=== PATIENT | female | born 1995 | race Caucasian/White ===

== ENCOUNTER 2021-04-11 17:13 | Emergency (ER) | payer OTHER, SELFPAY ==
[2021-04-11 17:14] VITALS: BP 131/89; PULSE 92; RESP 18; TEMP 36.7; O2SAT 99; BMI 30.6
--- NOTE | 2021-04-11 18:12 | HMH.EDUTC ---
[facility] [place] Clinical Impression: Exposure to COVID-19 virus URI (upper respiratory infection) Qualifiers: URI type: unspecified URI Qualified Code(s): J06.9 - Acute upper respiratory infection, unspecified Disposition: Home, Self-Care Condition on Discharge: Good Instructions: DI for COVID-19 (Suspected or Confirmed ) Additional Instructions: covid swab was sent to lab, call tomorrow for results. self isolate until test results are known to be negative No sign of a bacterial infection. Likely viral. Viruses can take 7-14 days to run their course. Nasal saline and bulb syringe or nose Vanessa to remove nasal drainage to help with nasal congestion. Hard to eat, drink, sleep with nasal congestion so important to keep this cleaned out. Monitor temp. Tylenol or Motrin as needed for pain or fever Encourage fluids, water, Gatorade, Powerade, Pedialyte if /toddler/child Warm salt water gargles Warm fluids Sore throat lozenges Sleep elevated Humidifier/vaporizer Follow-up immediately for new or worsening symptoms or no noticeable improvement over the next 48-72 hours. Referrals: Aminta Carranza MD [Primary Care Provider] - Time of Disposition: 18:14 Medical Decision Making - Dennis Inquiry Pt receiving controlled substance: No Orders (Tests/Meds): ORDERS Category Date Time Status Covid-19 Nasal PCR ([facility]) Routine Lab 04/11/21 17:40 Received [facility] [place] - General Chief complaint: Urgent [facility] Stated complaint: covid test Time Seen by Provider: 04/11/21 18:12 Mode of Arrival: Ambulatory Source of Information: Patient Limitations: No Limitations - History of Present Illness Provider Complaint: 25 yr old female presnets for nicole, cough and nasal congestion. pt states family has covid - Related Data Home Medications Medication Instructions Recorded Confirmed Budesonide/Formoterol Fumarate 6 gm IH NEEDED PRN 11/12/18 11/12/18 [Symbicort 160-4.5 Mcg Inhaler] Docusate Sodium [Doc-Q-Lace] 100 mg PO NEEDED PRN 11/12/18 11/12/18 Fluticasone Propionate [Flonase 2 spr NS DAILY 11/12/18 11/12/18 50mcg nasal spray 16gm] Loratadine [Claritin 10mg Tablet] 10 mg PO DAILY 11/12/18 11/12/18 Montelukast Sodium [Montelukast 10 mg PO DAILYDM 11/12/18 11/12/18 10mg Tab] Sertraline HCl [Zoloft] 100 mg PO DAILY 11/12/18 11/12/18 Trazodone HCl 50 mg PO DAILY 11/12/18 11/12/18 ondansetron HCL [Ondansetron 4mg 4 mg PO Q8HP PRN 11/12/18 11/12/18 Tablet] Previous Rx's Medication Instructions Recorded Ondansetron [Zofran 4mg ODT] 4 mg PO TID PRN 2 Days #6 11/12/18 tab.rapdis cephALEXin [Keflex 500mg Cap] 1,000 mg PO BID 10 Days #28 cap 11/12/18 Azithromycin [Z-José 250mg Tab*] 250 mg PO UD DOSE PK #6 tab 01/31/19 methylPREDNISolone [Medrol 4mg 4 mg PO DIRECTED #21 tab 01/31/19 tab] Allergies Allergy/AdvReac Type Severity Reaction Status Date / Time peanut Allergy Verified 11/11/18 23:45 [facility] History - Hepatitis A Screen Attestation statement:: This patient has been screened for Hepatitis A risk factors. I have reviewed the patient's past medical history: Yes - Social History Alcohol Intake: never Occupational Status: student ROS Obtained: Yes Systems reviewed as appropriate & no additional complaints - Constitutional Constitutional: Reports system reviewed and no additional complaints, except as docu, Denies fever(s) - Eyes Eyes: Reports system reviewed and no additional complaints, except as docu, Denies blind spots - ENT Ears, Nose, Mouth, and Throat: Reports system reviewed and no additional complaints, except as docu, Denies dizziness, Reports headache(s), Reports nasal congestion, Denies sore throat - Cardiovascular Cardiovascular: Reports system reviewed and no additional complaints, except as docu, Denies chest pain - Respiratory Respiratory: Reports system reviewed and no additional complaints, except as docu, Denies chest congestion
[2021-04-11 18:28] VITALS: BP 131/89; PULSE 92; RESP 18; TEMP 36.7; O2SAT 99
== END 2021-04-11 18:32 | disposition home or self-care (01) ==
PROVIDERS: Emergency Provider Nurse Practitioner Family; PCP Family Medicine
DX: U07.1 COVID-19 (principal); J06.9 Acute upper respiratory infection, unspecified
CPT/HCPCS: 99202; C9803; G0463; U0003; U0005

== ENCOUNTER 2023-12-05 17:02 | Emergency (ER) | payer OTHER, SELFPAY ==
[2023-12-05 17:20] VITALS: BP 140/86; PULSE 114; RESP 20; TEMP 37.6; O2SAT 99; BMI 24.5
--- NOTE | 2023-12-05 17:23 | ED_ITS ---
Discharge Plan Disposition Patient Disposition: Home, Self-Care Condition: Good Prescriptions Prescriptions: New iuyqcvefjumxzve-yhvzfqutb-GZ [Bromfed DM] 2-30-10 mg/5 mL Syrup 5 ml PO Q6H PRN (Reason: Cough) Qty: 240 0RF amoxicillin 500 mg tablet 500 mg PO TID 10 Days Qty: 30 0RF ondansetron 4 mg Tablet,Disintegrating 4 mg PO Q8H PRN (Reason: Nausea) Qty: 12 0RF Referrals Follow up/Referrals: Aminta Carranza MD [Primary Care Provider] - See instructions Activity Restrictions/Add. Instructions Additional Instructions/Restrictions: Drink plenty of fluids. Take tylenol or ibuprofen for pain or fever. Take the medications as directed. Follow up with your regular doctor. GO TO THE ER FOR ANY WORSENING SYMPTOMS Clinical Impressions Clinical Impression: Acute viral syndrome, Sinusitis Stand Alone Forms Stand Alone Forms: Work/School Release Instructions Patient Instructions: DI for Sinusitis, DI for Viral Syndrome Print Language Print Language: Mauritian Discharge ED Provider: Albert Powers [facility] [place] HPI General Stated complaint: Nausea,cough Time Seen by Provider: 12/05/23 17:23 Related Data Previous Rx's ?Medication ?Instructions ?Recorded amoxicillin 500 mg tablet 500 mg PO TID 10 days #30 tabs 12/05/23 hfzzcbnpvlqlknz-rulivholoolawsh-FO 5 ml PO Q6H PRN Cough #240 mL 12/05/23 2 mg-30 mg-10 mg/5 mL oral syrup (Bromfed DM) ondansetron 4 mg disintegrating 4 mg PO Q8H PRN Nausea #12 tabs 12/05/23 tablet Allergies Allergy/AdvReac Type Severity Reaction Status Date / Time peanut Allergy Verified 11/11/18 23:45 [facility] Disclaimer: The information contained in this section may have been updated after the patient was seen, as this information can be updated by other users. Social History Smoking Status: Never smoker second hand exposure: No alcohol intake: never current occupational status: student Travel in the last 8 weeks: None ROS Obtained: Yes All systems reviewed & no additional complaints except as documented Constitutional Constitutional: Reports poor appetite Eyes Eyes: Reports system reviewed and no additional complaints, except as documented ENT Ears, Nose, Mouth, and Throat: Reports as per HPI Cardiovascular Cardiovascular: Reports system reviewed and no additional complaints, except as documented and Denies chest pain Respiratory Respiratory: Denies shortness of breath, Denies chest congestion, Reports cough, Denies stridor and Denies wheezing Gastrointestinal Gastrointestingal: Reports system reviewed and no additional complaints, except as documented; Denies abdominal pain, diarrhea or vomiting Musculoskeletal Musculoskeletal: Reports system reviewed and no additional complaints, except as documented and Denies arthralgias Integumentary/Breasts Skin/Breast: Reports system reviewed and no additional complaints, except as documented and Denies rash Neurologic Neurologic: Denies paresthesias Allergic/Immunologic Allergic/Immunologic: Denies wheezing Physical Exam General General appearance: alert and in no apparent distress Eye Eye exam: Present normal appearance, PERRL and EOMI ENT ENT exam: Present mucous membranes moist and normal external ear exam Expanded ENT Exam External ear exam: Present normal external inspection TM/Canal exam: Bilateral TM: erythema and bulging Nose exam: Absent sinus tenderness Nasal speculum exam: Bilateral: normal Mouth exam: Present normal external inspection; Absent drooling Teeth exam: Present normal inspection Throat exam: Present tonsillar erythema and tonsillomegaly Neck Neck exam: Present normal inspection, full ROM and trachea midline; Absent tenderness, lymphadenopathy or thyromegaly Chest Chest inspection: Present normal inspection and symmetric chest wall rise; Absent tenderness or rash Respiratory Respiratory exam: Present normal lung sounds bilaterally; Absent respiratory distress, wheezes, stridor or accessory muscle use Cardiovascular Cardiovascular exam: Present regular rate, normal rhythm and normal heart sounds Abdominal Exam Abdominal exam: Present soft; Absent distention, tenderness, guarding, rebound or rigidity Extremities Exam Extremities exam: Present normal inspection, full ROM and normal capillary refill; Absent tenderness or calf tenderness Back Exam Back exam: Present normal inspection and full ROM; Absent tenderness Neurological Exam Neurological exam: Present alert and oriented X3 Psychiatric Psychiatric exam: Present normal affect and normal mood Skin Skin exam: Present warm, dry, intact and normal color Lymphatic Lymphatic Findings: no adenopathy Medical Decision Making Medical Records Medical records reviewed: No I reviewed the patient's medical records. Screening: Per USPSTF and CDC recommendations, given the prevalence of disease in our region, it is our hospital?s policy to screen for HIV and viral Hepatitis for all patients aged 18 and over and those with ongoing risk factors. Dennis Inquiry Pt receiving controlled substance: No Lab Data Lab results reviewed: Yes I reviewed the patient's lab results.
[2023-12-05 17:43] LABS: UTC Influenza A Antigen Negative (Negative); UTC Strep Screen (Rapid) Negative (Negative)
[2023-12-05 17:44] LABS: UTC Influenza B Antigen Negative (Negative)
[2023-12-05 17:49] VITALS: BP 140/86; PULSE 114; RESP 20; TEMP 37.6; O2SAT 99
== END 2023-12-05 17:50 | disposition home or self-care (01) ==
PROVIDERS: Emergency Provider Nurse Practitioner Family; PCP Family Medicine
DX: J01.90 Acute sinusitis, unspecified (principal); R05.9 Cough, unspecified; R11.0 Nausea
CPT/HCPCS: 87804; 87880; 99212; 99214; G0463

== ENCOUNTER 2024-01-20 18:00 | Emergency (ER) | payer OTHER, SELFPAY ==
[2024-01-20 18:30] VITALS: BP 111/84; PULSE 103; RESP 18; TEMP 36.6; O2SAT 97; BMI 22.6
--- NOTE | 2024-01-20 18:46 | ED_ITS ---
Discharge Plan Disposition Patient Disposition: Home, Self-Care Condition: Good Prescriptions Prescriptions: New amoxicillin 500 mg tablet 500 mg PO TID 10 Days Qty: 30 0RF fxvigjhifwelesx-vihbabkru-MH [Bromfed DM] 2-30-10 mg/5 mL Syrup 5 ml PO Q6H PRN (Reason: Cough) Qty: 240 0RF methylprednisolone 4 mg Tablets,Dose Pack 4 mg PO DIRECTED 6 Days Qty: 21 0RF Rx Instructions: Take 1 pack as directed for 6 days Referrals Follow up/Referrals: Provider,Referral, MD [Primary Care Provider] - See instructions Activity Restrictions/Add. Instructions Additional Instructions/Restrictions: Drink plenty of fluids. Take tylenol or ibuprofen for pain or fever. Take the medications as directed. Follow up with your regular doctor. GO TO THE ER FOR ANY WORSENING SYMPTOMS Clinical Impressions Clinical Impression: Acute bronchitis, Otitis media Stand Alone Forms Stand Alone Forms: Work/School Release Instructions Patient Instructions: Middle Ear Infection, DI for Acute Bronchitis Print Language Print Language: Greenlandic Discharge ED Provider: Albert Powers [facility] [place] HPI General Stated complaint: cough, ear ache Mode of Arrival: Ambulatory Source of Information: Patient Limitations: No Limitations Time Seen by Provider: 01/20/24 18:46 Description of Symptoms (Recalled from Triage Doc. by RN): PATIENT C/O COUGH AND RIGHT EAR PAIN X 3 WEEKS HEENT Symptoms (Recalled from RN notes): Yes Resp Symptoms (Recalled from RN notes): Yes Skin Symptoms (Recalled from RN notes): No MS Symptoms (Recalled from RN notes): No Functional Status (Recalled from RN notes): WNL Related Data Previous Rx's ?Medication ?Instructions ?Recorded amoxicillin 500 mg tablet 500 mg PO TID 10 days #30 tabs 01/20/24 kjfpvkwoyemxeop-xenygxlpyexhlsl-IO 5 ml PO Q6H PRN Cough #240 mL 01/20/24 2 mg-30 mg-10 mg/5 mL oral syrup (Bromfed DM) methylprednisolone 4 mg tablets in 4 mg PO DIRECTED 6 days #21 tabs 01/20/24 a dose pack Allergies Allergy/AdvReac Type Severity Reaction Status Date / Time peanut Allergy Verified 11/11/18 23:45 Worker's Comp Is this a Worker's Comp case?: No [facility] Disclaimer: The information contained in this section may have been updated after the patient was seen, as this information can be updated by other users. Medical History (Updated 01/20/24 @ 19:08 by Albert Powers APRN) Depression Anxiety Surgical History (Updated 01/20/24 @ 18:41 by Shruti Cantu RN) History of hernia repair Social History (Updated 12/05/23 @ 19:51 by Albert Powers APRN) Smoking Status: Never smoker second hand exposure: No alcohol intake: never current occupational status: student Travel in the last 8 weeks: None ROS Obtained: Yes All systems reviewed & no additional complaints except as documented Constitutional Constitutional: Denies chills, Reports fever(s) and Reports poor appetite Eyes Eyes: Denies eye discharge ENT Ears, Nose, Mouth, and Throat: Denies ear discharge, Reports otalgia, Denies hearing loss, Denies sinus pain and Reports sore throat Cardiovascular Cardiovascular: Denies chest pain and Denies dyspnea Respiratory Respiratory: Denies chest congestion, Reports cough and Denies dyspnea Gastrointestinal Gastrointestingal: Denies abdominal pain, diarrhea, nausea or vomiting Musculoskeletal Musculoskeletal: Denies arthralgias Integumentary/Breasts Skin/Breast: Denies rash Physical Exam General General appearance: alert and in no apparent distress Head Head exam: atraumatic, normocephalic and normal inspection Eye Eye exam: Present normal appearance; Absent PERRL or EOMI ENT ENT exam: Present mucous membranes moist and normal external ear exam Expanded ENT Exam TM/Canal exam: Bilateral TM: erythema, bulging and effusion Nose exam: Absent sinus tenderness Nasal speculum exam: Bilateral: normal Mouth exam: Present normal external inspection and other; Absent drooling Teeth exam: Present normal inspection Throat exam: Present tonsillar erythema and tonsillomegaly Neck Neck exam: Present normal inspection, full ROM and trachea midline; Absent tenderness, meningismus or lymphadenopathy Chest Chest inspection: Present normal inspection and symmetric chest wall rise; Absent tenderness Respiratory Respiratory exam: Present normal lung sounds bilaterally; Absent respiratory distress, wheezes or stridor Cardiovascular Cardiovascular exam: Present regular rate, normal rhythm and normal heart sounds; Absent tachycardia or irregular rhythm Abdominal Exam Abdominal exam: Present soft and normal bowel sounds; Absent distention, tenderness, guarding, rebound or rigidity Extremities Exam Extremities exam: Present normal inspection and normal capillary refill; Absent tenderness, joint swelling or calf tenderness Back Exam Back exam: Present normal inspection and full ROM; Absent tenderness, CVA ten derness (R) or CVA tenderness (L) Neurological Exam Neurological exam: Present alert, oriented X3, CN II-XII intact, normal gait and reflexes normal; Absent motor sensory deficit Psychiatric Psychiatric exam: Present normal affect and normal mood Skin Skin exam: Present warm, dry, intact and normal color Lymphatic Lymphatic Findings: no adenopathy Medical Decision Making Medical Records Medical records reviewed: No I reviewed the patient's medical records. Screening: Per USPSTF and CDC recommendations, given the prevalence of disease in our region, it is our hospital?s policy to screen for HIV and viral Hepatitis for all patients aged 18 and over and those with ongoing risk factors. Dennis Inquiry Pt receiving controlled substance: No Vital Signs: 01/20/24 18:30 Temperature 97.9 F Temperature Source Oral Pulse Rate [Left Brachial] 103 H Respiratory Rate 18 Blood Pressure [Left Arm] 111/84 Blood Pressure Mean [Left Arm] 93 Blood Pressure Source [Left Arm] Automatic Cuff Blood Pressure Position [Left Arm] Sitting 02 Sat by Pulse Oximetry 97 Oxygen Delivery Method Room Air Lab Data Lab results reviewed: Yes I reviewed the patient's lab results.
[2024-01-20 19:12] VITALS: BP 111/84; PULSE 103; RESP 18; TEMP 36.6; O2SAT 97
== END 2024-01-20 19:13 | disposition home or self-care (01) ==
PROVIDERS: Emergency Provider Nurse Practitioner Family
DX: J20.9 Acute bronchitis, unspecified (principal); H66.93 Otitis media, unspecified, bilateral
CPT/HCPCS: 99213; G0381

== ENCOUNTER 2024-02-26 16:18 | Emergency (ER) | payer OTHER, SELFPAY ==
[2024-02-26 16:19] VITALS: BP 133/96; PULSE 72; RESP 18; TEMP 36.8; O2SAT 99; BMI 24.3
[2024-02-26 16:30] VITALS: BP 152/97; PULSE 86; O2SAT 99
[2024-02-26 16:45] VITALS: PULSE 78; O2SAT 100
[2024-02-26 16:46] LABS: Urine Pregnancy, HCG Qual. Negative (Negative)
--- NOTE | 2024-02-26 16:54 | PC.NURSE ---
left a message with [facility] office for appt to be arranged for pt after speaking with Malika Aj
[2024-02-26 17:00] VITALS: BP 126/84; PULSE 69; O2SAT 99
[2024-02-26 17:31] VITALS: BP 123/74; PULSE 69; O2SAT 100
--- NOTE | 2024-02-26 17:37 | PC.NURSE ---
Rounds just completed.
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
[2024-02-26 18:34] VITALS: BP 123/74; PULSE 68; RESP 18; TEMP 36.6
== END 2024-02-26 18:36 | disposition home or self-care (01) ==
PROVIDERS: Emergency Provider Emergency Medicine
DX: F43.20 Adjustment disorder, unspecified (principal); F32.A Depression, unspecified
CPT/HCPCS: 81025; 99283

== ENCOUNTER 2024-04-19 21:02 | Emergency (ER) | payer OTHER, SELFPAY ==
[2024-04-19 21:21] VITALS: BP 110/69; PULSE 111; RESP 18; TEMP 36.8; O2SAT 98; BMI 24.7
[2024-04-20 01:05] LABS: Urine Pregnancy, HCG Qual. Negative (Negative)
[2024-04-20] MEDS: ONDANSETRON 4MG ODT 4 MG SL (01:07)
[2024-04-20 01:14] VITALS: BP 120/78; PULSE 82; RESP 20; TEMP 36.6; O2SAT 99
--- NOTE | 2024-04-20 04:34 | ED_ITS ---
Discharge Plan Disposition Patient Disposition: Home, Self-Care Condition: Good Prescriptions Prescriptions: New ondansetron 4 mg tablet,disintegrating 4 mg PO Q6H PRN (Reason: nausea and vomiting) Qty: 7 0RF No Action hydroxyzine pamoate [Vistaril] 25 mg capsule 25 mg PO Q6H PRN (Reason: anxiety) Qty: 30 1RF amoxicillin 500 mg tablet 500 mg PO TID 10 Days Qty: 30 0RF imfyjkjeuxzilbr-jowmugtfo-RP [Bromfed DM] 2-30-10 mg/5 mL Syrup 5 ml PO Q6H PRN (Reason: Cough) Qty: 240 0RF methylprednisolone 4 mg Tablets,Dose Pack 4 mg PO DIRECTED 6 Days Qty: 21 0RF Rx Instructions: Take 1 pack as directed for 6 days Referrals Follow up/Referrals: Provider,Referral, MD [Primary Care Provider] - See instructions Activity Restrictions/Add. Instructions Additional Instructions/Restrictions: You were evaluated in the ER and are appropriate for discharge at this time. Drink plenty of fluids including water, Gatorade, Pedialyte to maintain good hydration. Eat a bland diet. Take the prescribed ondansetron (Zofran) if needed for nausea or vomiting. Make an appointment with your primary care doctor for reevaluation in 2 to 3 days. Return to the ER with new, worsening, or otherwise concerning symptoms. Clinical Impressions Clinical Impression: Nausea, Diarrhea Print Language Print Language: Singaporean Discharge ED Provider: Flaco Dubois General Adult HPI General Chief complaint: Nausea/Vomiting/Diarrhea Stated complaint: nausea,diarrhea Time Seen by Provider: 04/20/24 00:35 Mode of Arrival: Ambulatory Source of Information: Patient Limitations: No Limitations Description of Symptoms (Recalled from ER Triage Doc. by RN): Pt presents for evaluation of nausea and diarrhea since this AM History of Present Illness HPI narrative: 28-year-old female with no chronic medical conditions, no current daily medications, no known drug allergies presents to the ER for evaluation of 24 hours of nausea and diarrhea. Diarrhea has only happened 2-3 times and has been nonbloody, nonmelanotic. Patient has not had any emesis. She thought she potentially ate something bad but has not been feeling better despite taking wqim-xej-bbqnhyz antiemetic at home. Patient states at this time she feels well, she has been tolerating oral intake. She has no abdominal pain, no dysuria or hematuria, no fevers, chills, chest pain, difficulty breathing, headache, dizziness, numbness, tingling, weakness, or other associated symptoms. Patient reports she is 7 months and has not had a recent period. Related Data Previous Rx's ?Medication ?Instructions ?Recorded amoxicillin 500 mg tablet 500 mg PO TID 10 days #30 tabs 01/20/24 szodwpcrapzhoiw-wbmmxmkepbrztaa-EC 5 ml PO Q6H PRN Cough #240 mL 01/20/24 2 mg-30 mg-10 mg/5 mL oral syrup (Bromfed DM) methylprednisolone 4 mg tablets in 4 mg PO DIRECTED 6 days #21 tabs 01/20/24 a dose pack hydroxyzine pamoate 25 mg capsule 25 mg PO Q6H PRN anxiety #30 caps 02/26/24 (Vistaril) ondansetron 4 mg disintegrating 4 mg PO Q6H PRN nausea and 04/20/24 tablet vomiting #7 tabs Allergies Allergy/AdvReac Type Severity Reaction Status Date / Time peanut Allergy Verified 11/11/18 23:45 [facility] Disclaimer: The information contained in this section may have been updated after the patient was seen, as this information can be updated by other users. Medical History (Updated 04/20/24 @ 01:13 by Flaco Dubois MD) Depression Anxiety Surgical History (Updated 01/20/24 @ 18:41 by Shruti Cantu RN) History of hernia repair Social History (Updated 12/05/23 @ 19:51 by Albert Powers APRN) Smoking Status: Current every day smoker second hand exposure: No alcohol intake: never current occupational status: student Travel in the last 8 weeks: None Have you lived/traveled outside US in past 30 days?: No Contact w/someone who lives/traveled outside US past 30 days?: No Exposure to someone with infectious disease in past 14 days?: No Do you have a fever (greater than 100.4 F or 38 C)?: No Have you tested positive for COVID-19: No Exposed to someone with COVID-19 in past 14 days?: No Do you have a sore throat?: No Do you have a cough?: No Do you have any weakness?: No Do you have any diarrhea?: Yes Are you experiencing any unusual bleeding?: No Do you have any muscle aches/pain?: No Do you have any abdominal pain?: No Are you experiencing loss of taste or smell?: No Other Medical History Have you received the Flu Vaccine for this season: No Have you received the Pneumonia Vaccine: No ROS Obtained: Yes Systems reviewed as appropriate & no additional complaints except as documented Per HPI Physical Exam General General appearance: alert and in no apparent distress Head Head exam: atraumatic and normocephalic Eye Eye exam: Present PERRL and EOMI ENT ENT exam: Present mucous membranes moist Neck Neck exam: Present normal inspection and full ROM Chest Chest inspection: Present symmetric chest wall rise Respiratory Respiratory exam: Present normal lung sounds bilaterally; Absent respiratory distress, wheezes or stridor Cardiovascular Cardiovascular exam: Present regular rate and normal rhythm Abdominal Exam Abdominal exam: Present soft; Absent distention, tenderness, guarding or rebound Comment: Benign abdomen Extremities Exam Extremities exam: Present full ROM; Absent edema or joint swelling Neurological Exam Neurological exam: Present alert, oriented X3, CN II-XII intact and normal gait; Absent motor sensory deficit Psychiatric Psychiatric exam: Present normal affect and normal mood Skin Skin exam: Present warm and dry Medical Decision Making Medical Records Medical records reviewed: Yes I reviewed the patient's medical records. Screening: Per USPSTF and CDC recommendations, given the prevalence of disease in our region, it is our hospital?s policy to screen for HIV and viral Hepatitis for all patients aged 18 and over and those with ongoing risk factors. MR Comment: Patient was evaluated by [facility] in January 2024 and diagnosed with bronchitis discharged on amoxicillin, Bromfed, methylprednisolone. Dennis Inquiry Pt receiving controlled substance: No Vital Signs: 04/19/24 21:21 04/20/24 01:14 Temperature 98.3 F 97.9 F Temperature Source Oral Pulse Rate 82 Pulse Rate [Right] 111 H Respiratory Rate 18 20 Blood Pressure 120/78 Blood Pressure [Right Arm] 110/69 Blood Pressure Mean [Right Arm] 82 Blood Pressure Source [Right Arm] Automatic Cuff Blood Pressure Position [Right Arm] Sitting 02 Sat by Pulse Oximetry 98 Oxygen Delivery Method Room Air Room Air Lab Data Lab Results 04/20/24 00:46: Urine HCG, Qual Negative Orders (Tests/Meds): ED MEDICATIONS Discontinued Medications Generic Name Dose Route Start Last Admin Trade Name Freq PRN Reason Stop Dose Admin Ondansetron HCl 4 mg 04/20/24 00:43 04/20/24 01:07 Ondansetron 4mg Odt SL 04/20/24 00:44 4 mg ONCE ONE Administration ORDERS Category Date Time Status Urine , HCG Qual. Stat Lab 04/20/24 00:46 Completed Medical Decision Narrative: In summary, 28-year-old female otherwise healthy presents to the ER with nausea and diarrhea for 24 hours. She is hemodynamically stable and afebrile on arrival. Exam demonstrates a benign abdomen, no abnormalities identified on exam. She is resting comfortably. Differential diagnosis includes but is not limited to viral syndrome, she has no complaints of pain so I am not concerned for appendicitis, bowel obstruction, mesenteric adenitis, biliary pathology, she also has no dysuria or hematuria so I am not concerned for urinary tract infection or pyelonephritis. She has not had vomiting or large volume loss so I do not believe she has dehydration or electrolyte abnormality. I did consider the possibility that she is . Urine test ordered. test negative. Patient received oral Zofran for nausea. I do not believe labs or imaging are indicated at this time since she is tolerating oral intake, has completely benign abdomen, and symptoms are completely controlled at this time and she is drinking water. She is tolerating oral intake without exacerbation of symptoms. She is appropriate for discharge at this time. Ondansetron was prescribed for outpatient management. Patient was given instructions on symptomatic management, follow up instructions, and return precautions for the emergency department. Patient indicated understanding and was discharged in stable condition. Critical Care Critical Care Time Critical Care Time: No
== END 2024-04-20 01:18 | disposition home or self-care (01) ==
PROVIDERS: Emergency Provider Emergency Medicine
DX: R11.0 Nausea (principal); R19.7 Diarrhea, unspecified
CPT/HCPCS: 81025; 99283; Q0162

== ENCOUNTER 2024-05-08 13:54 | Emergency (ER) | payer OTHER, SELFPAY ==
[2024-05-08 13:56] VITALS: BP 127/85; PULSE 125; RESP 18; TEMP 38; O2SAT 95; BMI 22.4
--- NOTE | 2024-05-08 14:09 | HMH.EDGENADL ---
Discharge Plan Disposition Patient Disposition: Home, Self-Care Condition: Good Prescriptions Prescriptions: No Action hydroxyzine pamoate [Vistaril] 25 mg capsule 25 mg PO Q6H PRN (Reason: anxiety) Qty: 30 1RF amoxicillin 500 mg tablet 500 mg PO TID 10 Days Qty: 30 0RF kihudkbyxavvxze-xjcfwfrub-ZP [Bromfed DM] 2-30-10 mg/5 mL Syrup 5 ml PO Q6H PRN (Reason: Cough) Qty: 240 0RF methylprednisolone 4 mg Tablets,Dose Pack 4 mg PO DIRECTED 6 Days Qty: 21 0RF Rx Instructions: Take 1 pack as directed for 6 days ondansetron 4 mg tablet,disintegrating 4 mg PO Q6H PRN (Reason: nausea and vomiting) Qty: 7 0RF Referrals Follow up/Referrals: Provider,Referral, MD [Primary Care Provider] - See instructions Activity Restrictions/Add. Instructions Additional Instructions/Restrictions: Continue taking at 1000 mg Tylenol alternating every 4 hours with 800 mg of Motrin with food as needed for body aches fever. Do not exceed 4000 mg of Tylenol in a 24-hour period continue to stay hydrated. If you have continued new or worsening signs or symptoms follow-up with your PCP or return to the ER as needed. Clinical Impressions Clinical Impression: Upper respiratory infection Qualifiers: URI type: unspecified URI Qualified Code(s): J06.9 - Acute upper respiratory infection, unspecified Instructions Patient Instructions: DI for Acute Bronchitis Print Language Print Language: Ghanaian Discharge ED Provider: Denny Jacobson General Adult HPI <SERGIO Acevedo - Last Filed: 05/08/24 19:35> General Chief complaint: Upper Respiratory Infection Stated complaint: tiredness fever 102.2 flu exposure Time Seen by Provider: 05/08/24 14:08 History of Present Illness HPI narrative: Patient presents for evaluation of fatigue high fever and generalized feeling unwell. Patient reports that she began feeling poorly 2 days ago. She was exposed to influenza from young family member who has known flu. Patient denies chest pain shortness of breath hemoptysis hematochezia melena nausea vomiting diarrhea abdominal pain. Related Data Previous Rx's ?Medication ?Instructions ?Recorded amoxicillin 500 mg tablet 500 mg PO TID 10 days #30 tabs 01/20/24 mpjdvsxapsvtpzf-emjwirjsrysvngv-YY 5 ml PO Q6H PRN Cough #240 mL 01/20/24 2 mg-30 mg-10 mg/5 mL oral syrup (Bromfed DM) methylprednisolone 4 mg tablets in 4 mg PO DIRECTED 6 days #21 tabs 01/20/24 a dose pack hydroxyzine pamoate 25 mg capsule 25 mg PO Q6H PRN anxiety #30 caps 02/26/24 (Vistaril) ondansetron 4 mg disintegrating 4 mg PO Q6H PRN nausea and 04/20/24 tablet vomiting #7 tabs Allergies Allergy/AdvReac Type Severity Reaction Status Date / Time peanut Allergy Verified 11/11/18 23:45 PFS <SERGIO Acevedo - Last Filed: 05/08/24 19:35> PFS Disclaimer: The information contained in this section may have been updated after the patient was seen, as this information can be updated by other users. Medical History (Updated 05/08/24 @ 15:03 by SERGIO Acevedo) Depression Anxiety Surgical History (Updated 01/20/24 @ 18:41 by Shruti Cantu RN) History of hernia repair Social History (Updated 12/05/23 @ 19:51 by Albert Powres APRN) Smoking Status: Light tobacco smoker second hand exposure: No alcohol intake: never current occupational status: student Travel in the last 8 weeks: None Have you lived/traveled outside US in past 30 days?: No Contact w/someone who lives/traveled outside US past 30 days?: No Exposure to someone with infectious disease in past 14 days?: No Do you have a fever (greater than 100.4 F or 38 C)?: Yes Have you tested positive for COVID-19: No Exposed to someone with COVID-19 in past 14 days?: No Do you have a sore throat?: No Do you have a cough?: No Do you have any weakness?: No Do you have any diarrhea?: No Are you experiencing any unusual bleeding?: No Do you have any muscle aches/pain?: No Do you have any abdominal pain?: No Are you experiencing loss of taste or smell?: No Other Medical History Have you received the Flu Vaccine for this season: No Have you received the Pneumonia Vaccine: No <SERGIO Acevedo - Last Filed: 05/08/24 19:35> ROS Obtained: Yes Systems reviewed as appropriate & no additional complaints except as documented Physical Exam <SERGIO Acevedo - Last Filed: 05/08/24 19:35> General General appearance: alert and in no apparent distress Respiratory Respiratory exam: Present normal lung sounds bilaterally Cardiovascular Cardiovascular exam: Present regular rate Neurological Exam Neurological exam: Present alert and oriented X3 Medical Decision Making <SERGIO Acevedo - Last Filed: 05/08/24 19:35> Medical Records Screening: Per USPSTF and CDC recommendations, given the prevalence of disease in our region, it is our hospital?s policy to screen for HIV and viral Hepatitis for all patients aged 18 and over and those with ongoing risk factors. Dennis Inquiry Pt receiving controlled substance: No Vital Signs: 05/08/24 13:56 05/08/24 15:21 Temperature 100.4 F H 99.4 F Temperature Source Oral Oral Pulse Rate 96 H Pulse Rate [Left Brachial] 125 H Respiratory Rate 18 18 Blood Pressure 112/71 Blood Pressure [Left Arm] 127/85 Blood Pressure Mean [Left Arm] 99 02 Sat by Pulse Oximetry 95 Oxygen Delivery Method Room Air Room Air Lab Data Lab results reviewed: Yes I reviewed the patient's lab results. Lab Results 05/08/24 14:05: SARS-CoV-2 (PCR) Not detected, Influenza A Untype (PCR) Not detected, Influenza Type B (PCR) Not detected Orders (Tests/Meds): ED MEDICATIONS Discontinued Medications Generic Name Dose Route Start Last Admin Trade Name Rhettq PRN Reason Stop Dose Admin Acetaminophen 1,000 mg 05/08/24 14:13 05/08/24 14:24 Acetaminophen 500mg Tab PO 05/08/24 14:14 1,000 mg ONCE ONE Administration Sodium Chloride 1,000 mls @ 999 mls/hr 05/08/24 14:13 05/08/24 14:24 Sod Chlor 0.9% 1000ml Bag IV 05/08/24 15:13 999 mls/hr .Q1H1M ONE Administration Ibuprofen 800 mg 05/08/24 14:13 05/08/24 14:24 Ibuprofen 400 Mg Tablet PO 05/08/24 14:14 800 mg ONCE ONE Administration ORDERS Category Date Time Status Rapid PCR Covid and Flu A/B Stat Lab 05/08/24 14:05 Completed Medical Decision Narrative: In summary patient is a 29-year-old female who presents to the emergency department for evaluation of fatigue malaise and high fever. Patient is initially normotensive 127/5 tachycardic at 125 breathing 18 times a minute with a temperature of 100.4 satting at 95% on room air upon arrival. Physical exam is remarkable for clear breath sounds with no increased work of breathing or adventitious sounds, normal posterior pharynx, no abdominal tenderness, no nuchal rigidity or meningeal signs.. Differential diagnosis includes upper or lower respiratory tract infection. Initial workup will be conducted with COVID and flu swabs. Initial interventions include crystalloid bolus Toradol Tylenol. Initial workup reviewed by me shows that her COVID and flu are negative.. Upon repeat evaluation patient reported feeling constitutionally better her heart rate did come down to 96 her temperature had defervesced to 99.4 she was tolerating oral intake.. Given this patient is appropriate for discharge with instructions for symptomatic care including Tylenol alternating with Motrin every 4 hours for the constitutional symptoms and strict return precautions. <Denny Jacobson MD - Last Filed: 05/10/24 16:03> Vital Signs: 05/08/24 13:56 05/08/24 15:21 Temperature 100.4 F H 99.4 F Temperature Source Oral Oral Pulse Rate 96 H Pulse Rate [Left Brachial] 125 H Respiratory Rate 18 18 Blood Pressure 112/71 Blood Pressure [Left Arm] 127/85 Blood Pressure Mean [Left Arm] 99 02 Sat by Pulse Oximetry 95 Oxygen Delivery Method Room Air Room Air Lab Data Lab Results 05/08/24 14:05: SARS-CoV-2 (PCR) Not detected, Influenza A Untype (PCR) Not detected, Influenza Type B (PCR) Not detected Orders (Tests/Meds): ED MEDICATIONS Discontinued Medications Generic Name Dose Route Start Last Admin Trade Name Freq PRN Reason Stop Dose Admin Acetaminophen 1,000 mg 05/08/24 14:13 05/08/24 14:24 Acetaminophen 500mg Tab PO 05/08/24 14:14 1,000 mg ONCE ONE Administration Sodium Chloride 1,000 mls @ 999 mls/hr 05/08/24 14:13 05/08/24 14:24 Sod Chlor 0.9% 1000ml Bag IV 05/08/24 15:13 999 mls/hr .Q1H1M ONE Administration Ibuprofen 800 mg 05/08/24 14:13 05/08/24 14:24 Ibuprofen 400 Mg Tablet PO 05/08/24 14:14 800 mg ONCE ONE Administration ORDERS Category Date Time Status Rapid PCR Covid and Flu A/B Stat Lab 05/08/24 14:05 Completed Medical Decision Narrative: In summary patient is a 29-year-old female who presents to the emergency department for evaluation of fatigue malaise and high fever. Patient is initially normotensive 127/5 tachycardic at 125 breathing 18 times a minute with a temperature of 100.4 satting at 95% on room air upon arrival. Physical exam is remarkable for clear breath sounds with no increased work of breathing or adventitious sounds, normal posterior pharynx, no abdominal tenderness, no nuchal rigidity or meningeal signs.. Differential diagnosis includes upper or lower respiratory tract infection. Initial workup will be conducted with COVID and flu swabs. Initial interventions include crystalloid bolus Toradol Tylenol. Initial workup reviewed by me shows that her COVID and flu are negative.. Upon repeat evaluation patient reported feeling constitutionally better her heart rate did come down to 96 her temperature had defervesced to 99.4 she was tolerating oral intake.. Given this patient is appropriate for discharge with instructions for symptomatic care including Tylenol alternating with Motrin every 4 hours for the constitutional symptoms and strict return precautions. I was consulted by the ELIZA, and we discussed the complexity of the problems being addressed. I approved the treatment and management plan for this patient's care in the Emergency Department, thus performing a substantive portion of the medical decision making. Denny Jacobson MD Critical Care <SERGIO Acevedo - Last Filed: 05/08/24 19:35> Critical Care Time Critical Care Time: No
[2024-05-08 14:18] LABS: Coronavirus 19, PCR Not Detected (NotDetected); Influenza A, PCR Not Detected (NotDetected); Influenza B, PCR Not Detected (NotDetected)
[2024-05-08] MEDS: ACETAMINOPHEN 500MG TAB 1000 MG PO (14:24)
[2024-05-08] MEDS: 0.9 % SODIUM CHLORIDE 1000ML 1,000 ML 999 ML IV (14:24)
[2024-05-08] MEDS: IBUPROFEN 400 MG TABLET 800 MG PO (14:24)
[2024-05-08 15:21] VITALS: BP 112/71; PULSE 96; RESP 18; TEMP 37.4; O2SAT 96
== END 2024-05-08 15:20 | disposition home or self-care (01) ==
PROVIDERS: Physician Assistant; Emergency Provider Emergency Medicine
DX: J06.9 Acute upper respiratory infection, unspecified (principal); R50.9 Fever, unspecified; R53.83 Other fatigue; Z20.828 Contact with and (suspected) exposure to other viral communicable diseases; Z72.0 Tobacco use
CPT/HCPCS: 87636; 96360; 99283; J7030

== ENCOUNTER 2024-10-18 22:29 | Emergency (ER) | payer OTHER, SELFPAY ==
--- OUTSIDE RECORDS SUMMARY | 2024-09-03 14:15 | XMS_ITS | Encounter Summary ---
Author Organization Healthcare Address [address] [place] [address] Care Team Providers Care Venture Capital Analyst Name Role Phone Albert Parks MD Primary Care Provider [phone] Reason for Visit * Reason Comments Vaginal Bleeding Irregular bleeding Encounter Details Date Type Department Care Team (Late st Contact Info) Description 09/03/2024 2:15 PM EDT Office Visit Obstetrics & Gynecology [address] [place] [address] Nicho Palacios MD [address] [place] [address] Irregular menstruation, unspecified (Primary Dx) Social History Tobacco Use Types Packs/Day Years Used Date Smoking Tobacco: Former Cigarettes 1 3 2 019 - 2021 Smokeless Tobacco: Former Chew Quit: 03/2022 Alcohol Use Standard Drinks/Week Comments Not Currently 0 (1 standard drink = 0.6 oz pur e alcohol) PHQ-2 Answer Date Recorded Patient Health Questionnaire-2 Score 0 09/03/2024 [place] Depression Scale Answer Date Recorded [place] Depression Scale Total 1 09/09/2023 The thought of harming myself has occurred to me . Never 09/09/2023 PHQ-9 Answer Date Recorded Patient Health Questionnaire-9 Score 0 09/03/2024 PHQ-2A Answer Date Recorded Patient Health Questionnaire-2 Score 0 08/18/2022 Comments Unknown Sex and Gender Information Value Date Recorded Sex Assigned at Not on file Legal Sex Female 8:20 PM EDT Gender Identity Not on file Sexual Orientation Not on file documented as of this encounter Last Filed Vital Signs Vital Sign Reading Time Taken Comments Blood Pressure 125/81 09/03/2024 2:42 PM EDT Pulse 95 09/03/2024 2:42 PM EDT Temperature 36.8 C (98.3 F) 09/03/2024 2:42 PM EDT Respiratory Rate - - Oxygen Saturation 97% 09/03/2024 2:42 PM EDT Inhaled Oxygen Concentration - - Weight 60 kg (132 lb 4.4 oz) 09/03/2024 2:42 PM EDT Height - - Body Mass Index 22.71 06/08/2024 10:18 AM EDT documented in this encounter Functional Status * Over the past 2 weeks, how often have you been bothered by any of the following problems? Question Answer Date of Assessment Author Little interest or pleasure in doing things Not at all 09/03/2024 2:43 PM EDT [place] Feeling down, depressed, or hopeless Not at all 09/03/2024 2:43 PM EDT [place] Newsome Patient Health Questionnaire -2 Score 0 09/03/2024 2:43 PM EDT [place] Newsome * Question Answer Date of Assessment Author Trouble falling or staying a sleep, or sleeping too much Not at all 09/03/2024 2:43 PM EDT [place] Newsome Feeling tired or having kel le energy Not at all 09/03/2024 2:43 PM EDT [place] Newsome Poor appetite or overeating Not at all 09/03/2024 2: 43 PM EDT [place] News[place] Feeling bad about yourself - or that you are a failure or have let yourself or your family down Not at all 09/03/2024 2:43 PM EDT [place] Newsome Trouble concentrating on thi ngs, such as reading the newspaper or watching television Not at all 09/03/2024 2:43 PM EDT [place] Newsome Moving or speaking so slowly that other people could have noticed? Or the opposite - being so fidgety or restless that you have been moving around a lot more than usual. Not at all 09/03/2024 2:43 PM EDT [place] Newsome Thoughts that you would be b sergo off or hurting yourself in some way Not at all 09/03/2024 2:43 PM EDT [place] Newsome Patient Health Questionnaire -9 Score 0 09/03/2024 2:43 PM EDT [place] Newsome * If you checked off any problems on this questionnaire so far, Question Answer Date of Assessment Author How difficult have these problems made it for you to do your work, take care of things at home, or get along with other people? Not difficult at all 09/03/2024 2:43 PM EDT [place] Newsome documented as of this encounter Miscellaneous Notes * Progress Notes - Nicho Palacios MD - 09/03/2024 2:15 PM EDT Gynecology Progress Note Subjective 29 yo ( x 1 - Demise) - here for evaluation of slightly irregular periods - light - monthly - varies by a few days - will have light VB x 1 day - none the next - then again light VB - No contraception now - no sex. LPS >3 years ago. Vaginal Bleeding Review of Systems Constitutional: Negative. HENT: Negative. Eyes: Negative. Respiratory: Negative. Cardiovascular: Negative. Gastrointestinal: Negative. Endocrine: Negative. Genitourinary: Positive for menstrual problem. Musculoskeletal: Negative. Skin: Negative. Allergic/Immunologic: Negative. Neurological: Negative. Hematological: Negative. Psychiatric/Behavioral: Negative. All other systems reviewed and are negative. Objective Visit Vitals BP 125/81 Pulse 95 Temp 36.8 ??C (98.3 ??F) Physical Exam Constitutional: Appearance: Normal appearance. She is normal weight. HENT: Head: Normocephalic and atraumatic. Right Ear: External ear normal. Left Ear: External ear normal. Pulmonary: Effort: Pulmonary effort is normal. Musculoskeletal: General: Normal range of motion. Cervical back: Normal range of motion. Neurological: General: No focal deficit present. Mental Status: She is alert and oriented to person, place, and time. Psychiatric: Mood and Affect: Mood normal. Behavior: Behavior normal. Thought Content: Thought content normal. Judgment: Judgment normal. Vitals and nursing note reviewed. Assessment/Plan Assessment & Plan Irregular menstruation, unspecified Discussed VB pattern - reassurance given that this is OK - cold regulate with hormones - she declines at this time WWE/Pap soon Voices agreement A total of 22 minutes was spent on this visit with at least more than 50% of the encounter spent incounseling and/or coordinating care including reviewing previous notes, counseling the patient on their identified issues as indicated in the note, discussing previous and/or ordered tests or imaging, prescribing/refilling medications, and documenting the findings in this note, as well as laying out a specific plan of action for this patient. documented in this encounter Plan of Treatment Upcoming Encounters Date Type Department Care Team (Late st Contact Info) Description 10/25/2024 1:30 PM EDT Procedure Visit Obstetrics & Gynecology [address] [place] [address] Nicho Palacios MD [address] [place] [address] documented as of this encounter Visit Diagnoses Diagnosis Irregular menstruation, unspecified- Primary documented in this encounter Additional Health Concerns Assessment Noted Time PHQ-9 Depression Total Score: 0 09/04/19 25 2:43 PM EDT A fall risk assessment has been complete d for the patient 09/03/2024 2:43 PM EDT A Body Mass Index follow-up plan has been documented for the patient 09/03/2024 2:59 PM EDT documented as of this encounter Care Teams Venture Capital Analyst Relationship Specialty Start Date End Date Albert Parks MD [address] [facility] [place] [address] PCP - General 10/28/23 documented as of this encounter
--- OUTSIDE RECORDS SUMMARY | 2024-10-18 22:38 | XMS_ITS | Encounter Summary ---
Author Organization Healthcare Address [address] [place] [address] Care Team Providers Care Social Sciences Instructor Name Role Phone Albert Parks MD Primary Care Provider [phone] Encounter Details Date Type Department Care Team (Late st Contact Info) Description 07/25/2024 Telephone Obstetrics & Gynecology [address] [place] [address] Nicho Palacios MD [address] [place] [address] Social History Tobacco Use Types Packs/Day Years Used Date Smoking Tobacco: Former Cigarettes 1 3 2 019 - 2021 Smokeless Tobacco: Former Chew Quit: 03/2022 Alcohol Use Standard Drinks/Week Comments Not Currently 0 (1 standard drink = 0.6 oz pur e alcohol) PHQ-2 Answer Date Recorded Patient Health Questionnaire-2 Score 0 06/08/2024 Malcolm Depression Scale Answer Date Recorded Malcolm Depression Scale Total 1 09/09/2023 The thought of harming myself has occurred to me . Never 09/09/2023 PHQ-9 Answer Date Recorded Patient Health Questionnaire-9 Score 0 06/08/2024 PHQ-2A Answer Date Recorded Patient Health Questionnaire-2 Score 0 08/18/2022 Comments Unknown Sex and Gender Information Value Date Recorded Sex Assigned at Not on file Legal Sex Female 8:20 PM EDT Gender Identity Not on file Sexual Orientation Not on file documented as of this encounter Miscellaneous Notes * Telephone Encounter - Meghana Washington - 08/08/2024 10:41 AM EDT 08/08/24 urine/ hcg- lm 12/09 ( not sure if she is due to irregular periods) - ZMT * Telephone Encounter - Alisa Alonso RN - 07/31/2024 1:31 PM EDT Called pt and went over concerns. Reinforced education on what elevated blood pressures are. Instructed pt to message in [employer] for what availabilities she has to come in a little sooner. Pt reported that she was having a celebration of life for her son that has passed. Pt reported that she was getting through this hard day for her and her family. RN encouraged pt and instructed her to call ifshe has any further questions. * Telephone Encounter - Ranjana Call - 07/25/2024 10:16 AM EDT Clinical Concern/Question Reason for Call: Pt RS her appt and needs to speak with you She wants to speak with just the Dr Clarke contact number: [phone] (mobile) Optimal time of day to reach caller: ANYTIME Additional comments/information from caller: None Note: Please do not reply to this message. Follow-up communication and further actions as a result of this message need to be communicated with the patient directly, if the patient is not active onMyChart. If the patient is active on MyChart, they will receive notification of the communication/outcome via [employer]. documented in this encounter Plan of Treatment Upcoming Encounters Date Type Department Care Team (Late st Contact Info) Description 10/25/2024 1:30 PM EDT Procedure Visit Obstetrics & Gynecology [address] [place] [address] Nicho Palacios MD [address] [place] [address] documented as of this encounter Visit Diagnoses Not on filedocumented in this encounter Additional Health Concerns Assessment Noted Time PHQ-9 Depression Total Score: 0 06/09/19 25 10:19 AM EDT A fall risk assessment has been complete d for the patient 06/08/2024 10:20 AM EDT A Body Mass Index follow-up plan has been documented for the patient 06/08/2024 10:35 AM EDT documented as of this encounter Care Teams Social Sciences Instructor Relationship Specialty Start Date End Date Albert Parks MD [address] [place] [address] PCP - General 10/28/23 documented as of this encounter
--- OUTSIDE RECORDS SUMMARY | 2024-10-18 22:38 | XMS_ITS | Encounter Summary ---
Author Organization Healthcare Address [address] [place] [address] Care Team Providers Care Inside Sales Director Name Role Phone Albert Parks MD Primary Care Provider [phone] Encounter Details Date Type Department Care Team (Late st Contact Info) Description 09/03/2024 Telephone Obstetrics & Gynecology [address] [place] [address] Nicho Palacios MD [address] [place] [address] Social History Tobacco Use Types Packs/Day Years Used Date Smoking Tobacco: Former Cigarettes 1 3 2 019 - 2021 Smokeless Tobacco: Former Chew Quit: 03/2022 Alcohol Use Standard Drinks/Week Comments Not Currently 0 (1 standard drink = 0.6 oz pur e alcohol) PHQ-2 Answer Date Recorded Patient Health Questionnaire-2 Score 0 09/03/2024 [place] Depression Scale Answer Date Recorded [place] Depression Scale Total 1 09/09/2023 The thought [...] on file documented as of this encounter Functional Status * Over the [...] energy Not at all 09/03/2024 2:43 PM PANCHITOT [place] Poor appetite or overeating Not at all 09/03/2024 2: 43 PM EDT [place] Feeling bad about yourself - or that you are a failure or have let yourself or your family down Not at all 09/03/2024 2:43 PM EDT [place] Trouble concentrating on thi ngs, such as reading the newspaper or watching television Not at all 09/03/2024 2:43 PM PANCHITOT [place] Moving or speaking so slowly that other people could have noticed? Or the opposite - being so fidgety or restless that you have been moving around a lot more than usual. Not at all 09/03/2024 2:43 PM PANCHITOT [place] Thoughts that you would be b sergo off or hurting yourself in some way Not at all 09/03/2024 2:43 PM EDT [place] Patient Health Questionnaire -9 Score 0 09/03/2024 2:43 PM PANCHITOT [place] * If you checked off [...] encounter Miscellaneous Notes * Telephone Encounter - [place] Newsome - 09/03/2024 2:29 PM EDT Patient arrived for appt * Telephone Encounter - [place] Newsome - 09/03/2024 1:38 PM EDT Called patient back multiple times, one number not working, the other has no room to leave a voicemail * Telephone Encounter - Marta Schmidt - 09/03/2024 11:41 AM EDT Status Update Call #1 1st call regarding the status of the initial request. Best contact number: [phone] (mobile) Optimal time of day to reach caller: ANYTIME Additional comments/information from caller: None Note: Please do not reply to this message. Follow-up communication and further actions as a result of this message need to be communicated with the patient directly, if the patient is not active onMyChart. If the patient is active on MyChart, they will receive notification of the communication/outcome via MyChart. * Telephone Encounter - Ranjana Call - 09/03/2024 10:59 AM EDT Clinical Concern/Question Reason for Call: Pt needs to move up her appt if possible she will not have a ride later Best contact number: [phone] time of day to reach caller: ANYTIME Additional comments/information from caller: Not Applicable Note: Please do not reply to this message. Follow-up communication and further actions as a result of this message need to be communicated with the patient directly, if the patient is not active onMyChart. If the patient is active on MyChart, they will receive notification of the communication/outcome via MyChart. documented in this encounter Plan of Treatment Upcoming Encounters Date Type Department Care Team (Late st Contact Info) Description 10/25/2024 1:30 PM EDT Procedure Visit Obstetrics & Gynecology [address] [place] [address] Nicho Palacios MD [address] [place] [address] documented as of this encounter [...] documented as of this encounter Care Teams Inside Sales Director Relationship Specialty Start Date End Date Albert Parks MD [address] [place] [address] PCP - General 10/28/23 documented as of this encounter
--- OUTSIDE RECORDS SUMMARY | 2024-10-18 22:38 | XMS_ITS | Encounter Summary ---
Author Organization Healthcare Address [address] [place] [address] Care Team Providers Care Senior Controls Engineer Name Role Phone Albert Parks MD Primary Care Provider [phone] Reason for Visit * Reason Onset Date Comments HCN - Patient Message 07/23/2024 Encounter Details Date Type Department Care Team (Late Contact Info) Description 07/23/2024 Telephone Obstetrics & Gynecology [address] [place] [address] Nicho Palacios MD [address] [place] [address] HCN - Patient Message Social History Tobacco Use Types Packs/Day Years Used Date Smoking Tobacco: Former Cigarettes 1 3 2 019 - 2021 Smokeless Tobacco: Former Chew Quit: 03/2022 Alcohol Use Standard Drinks/Week Comments Not Currently 0 (1 standard drink = 0.6 oz pur e alcohol) PHQ-2 Answer Date Recorded Patient Health Questionnaire-2 Score 0 06/08/2024 [place] Depression Scale Answer Date Recorded [place] Depression Scale Total 1 09/09/2023 The thought [...] encounter Miscellaneous Notes * Telephone Encounter - Sloane Washingtonjonnathan Coughlin - 07/24/2024 1:43 PM EDT Scheduled appt per WorkQ * Telephone Encounter - Beena Sterlingkimberly Coughlin - 07/23/2024 3:49 PM EDT Clinical Concern/Question Reason for Call: pt is calling to have an annual exam Best contact number: [phone] (mobile) Optimal time of day to reach [...] will receive notification of the communication/outcome via [employer]. documented in this encounter Plan of Treatment Upcoming Encounters Date Type Department Care Team (Late st Contact Info) Description 10/25/2024 1:30 PM EDT Procedure Visit Obstetrics & Gynecology [address] [place] [address] Nicho Palacios MD [address] [place] [address] documented as of this encounter [...] documented as of this encounter Care Teams Senior Controls Engineer Relationship Specialty [place] [address] [place], [place] [address] [place] [address] PCP - General 10/28/23 documented as of this encounter
--- OUTSIDE RECORDS SUMMARY | 2024-10-18 22:38 | XMS_ITS | Clinical Summary ---
Author Organization [facility] Address [address] [place] [address] Care Team Providers Care Sheet Metal Fabricator Name Role Phone Albert Parks MD Primary Care Provider [phone] Allergies Active Allergy Reactions Criticality Noted Date Comments Peanut-Containing Drug Products Hives,Shortness of breath High 06/28/2022 Medications No known medications Active Problems Problem Noted Date Diagnosed Date Spontaneous vaginal delivery 08/01/2023 Diaphragmatic hernia, , affecting care of mother, antepartum 05/02/2023 Supervision of high risk , antepartum 0 05/02/2023 Urinary tract infection without hematuria 2022 Supervision of other normal , antepartu m 08/25/2022 Rubella non-immune status, antepartum 08/25/2022 Osteogenesis imperfecta 08/18/2022 Encounters Date Type Department Care Team Description 09/03/2024 2:15 PM EDT Office Visit Obstetrics & Gynecology [address] [place] [address] Nicho Palacios MD Irregular menstruation, unspecified (Primary Dx) 09/03/2024 Travel 09/03/2024 Telephone Obstetrics & Gynecology [address] [place] [address] Nicho Palacios MD 08/08/2024 11:30 AM EDT Clinical Support Obstetrics & Gynecology [address] [place] [address] Missed periods (Primary Dx) 08/08/2024 Travel 07/25/2024 Telephone Obstetrics & Gynecology [address] [place] [address] Nicho Palacios MD 07/23/2024 Telephone Obstetrics & Gynecology [address] [place] [address] Nicho Palacios MD HCN - Patient Message from Last 3 Months Immunizations Immunization Administration Dates Next Due MMR 08/02/2023(Deferred: Patient Ref used) Family History Medical History Relation Name Comments No Known Problems Brother Cancer Father Diabetes Father Cancer Father's Brother 1 Diabetes Father's Brother 2 Dementia Maternal Grandfather Cirrhosis Maternal Grandmother No Known Problems Mother Drug abuse Mother's Sister 1 Suicide Mother's Sister 1 No Known Problems Mother's Sister 2 Dementia Paternal Grandfather Heart attack Paternal Grandfather PTSD Paternal Grandfather Diabetes Paternal Grandmother Osteogenesis imperfecta Paternal Grandmother Autism Sister Relation Name Status Comments Brother Alive Father Father's Brother 1 Father's Brother 2 Alive Maternal Grandfather Alive Maternal Grandmother Mother Alive Mother's Sister 1 Mother's Sister 2 Alive Paternal Grandfather Paternal Grandmother Sister Alive Social History Tobacco Use Types Packs/Day Years Used Date Smoking Tobacco: Former Cigarettes 1 3 2 019 - 2021 Smokeless Tobacco: Former Chew Quit: 03/2022 Tobacco Cessation:Counseling Given: Not Answered Alcohol Use Standard Drinks/Week Comments Not Currently 0 (1 standard drink = 0.6 oz pur e alcohol) PHQ-2 Answer Date Recorded Patient Health Questionnaire-2 Score 0 09/03/2024 [place] Depression Scale Answer Date Recorded [place] Depression Scale Total 1 09/09/2023 The thought [...] on file Sexual Orientation Not on file Last Filed Vital Signs Vital Sign Reading Time Taken Comments Blood Pressure 125/81 09/03/2024 2:42 PM EDT Pulse 95 09/03/2024 2:42 PM EDT Temperature 36.8 C (98.3 F) 09/03/2024 2:42 PM EDT Respiratory Rate 18 09/09/2023 2:13 PM EDT Oxygen Saturation 97% 09/03/2024 2:42 PM EDT Inhaled Oxygen Concentration - - Weight 60 kg (132 lb 4.4 oz) 09/03/2024 2:42 PM EDT Height 162.6 cm (5' 4 ) 06/08/2024 10:18 AM EDT Body Mass Index 22.71 06/08/2024 10:18 AM EDT Plan of Treatment Upcoming Encounters Date Type Department Care Team (Late st Contact Info) Description 10/25/2024 1:30 PM EDT Procedure Visit Obstetrics & Gynecology [address] [place] [address] Nicho Palacios MD [address] [place] [address] Health Maintenance Due Date Last Done Comments [facility]-Infant/Child/Adol SDOH Screenings 1997 [facility]-Hepatitis B Vaccines (3 of 3 - 3-dose series) 08/07/1998 06/12/1998, 1997 [facility]-Varicella Vaccines (2 of 2 - 2-dose childhood series) 07/09/2002 04/16/2002 HPV Vaccines (3 - 3-dose series) 04/17/2014 12/21/2013, 10/15/2013 [facility]- SDOH Screenings 2015 [facility]-Adult SDOH Screenings 2015 [facility]-Pap Smear 2018 [facility]-DTaP,Tdap,and Td Vaccines (7 - Td or Tdap) 10/16/2023 10/15/2013, 04/16/2002, 08/12/1998, Additional history exists [facility]-STMRB-65 Vaccine ( - season) 2023 [facility]-Influenza Vaccine (#1) 2024 12/30/2016, [facility]-Depression Screening 09/03/2025 025, 09/03/2024, 09/09/2023 [facility]-Zoster Vaccines (1 of 2) 2047 04/16/2002 [facility]-HIB Vaccines Completed 06/12/1998, 11/1997, 1997 [facility]-IPV Vaccines Completed 04/16/2002, 10/1998, 1997, Additional history exists [facility]-Hepatitis A Vaccines Aged Out 09/14/2018 No longer eligible based on patient's age to complete this topic [facility]-HIV Screening Completed 04/27/2023, 08/18/2022 [facility]-Hepatitis C Screening Completed 04/27/2023, [facility]-Pneumococcal Vaccine: Pediatrics (0 to 5 Years) and At-Risk Patients (6 to 49 Years) Aged Out No longer eligible based on patient's age to complete this topic [facility]-Rotavirus Vaccines Aged Out No lo nger eligible based on patient's age to complete this topic Procedures Procedure Name Priority Date/Time Associated Diagnosis Comments POCT , URINE Routine 08/08/2024 1:14 PM EDT Missed periods HEPATITIS C ANTIBODY W/REFLEX TO HCV QUANT PCR Routine 04/27/2023 11:06 AM EST Supervision of other normal , antepartum HIV 1/2 ANTIBODY/ANTIGEN SCREEN WITH REFLEX TO HIV I/II DIFFERENTIATION Routine 04/27/2023 11:06 AM EST Supervision of other normal , antepartum from Last 3 Months or Most Recently Relevant to Health Maintenance Results * POCT Urine (08/08/2024 1:14 PM EDT) Urine - Point of Care Negative Negative - women after 7 weeks gestation and dilute urine (specific gravity <1.010) may have false negative results. Plasma HCG testing is recommended. Test performed at Point of Care. INTERNAL QC OK, PREG URINE ok KIT LOT NUMBER, PREG URINE [id number] KIT EXPIRATION DATE, PREG URINE [id number] Urine Urine specimen obtained by clean catch procedure / Unknown 08/08/2024 1:14 PM EDT us Mar aCstillo RN POINT OF CARE TEST ENTER/EDIT ORDERABLES Final Result * HIV 1 & 2 Antibody/Antigen Screen (04/27/2023 11:06 AM EST) [facility] HIV 1 & 2 Antibody/Antigen Screen Non Reactive Non Reactive 04/27/2023 2:49 PM EST [facility] Comment:Screening for HIV 1 & 2 antibodies, and P24 antigen is NONREACTIVE. No confirmatory testing is required. Blood Venous blood specimen / Unknown Venipuncture / Unknown 04/27/2023 11:06 AM EST 04/27/2023 1:02 PM EST Hannah Hinds APRN, CNM LAB BLOOD ORDERABLE S Final Result [facility] [address] [place] [address] * Hepatitis C Antibody w/Reflex to HCV Quant PCR (04/27/2023 11:06 AM EST) [facility] Hepatitis C Antibody Negative Negative 04/27/2023 2:38 PM EST [facility] Blood Venous blood specimen / Unknown Venipuncture / Unknown 04/27/2023 11:06 AM EST 04/27/2023 1:02 PM EST Hannah Hinds APRN, CNM LAB BLOOD ORDERABLE S Final Result [facility] [address] [place] [address] from Last 3 Months or Most Recently Relevant to Health Maintenance Insurance Advance Directives * Full Code (Latest Code Status on File) Date Activated Date Inactivated Comments 08/02/2023 3:56 PM 08/02/2023 10:55 PM Question Answer Comments Patient has decision-making capacity? Yes Care Teams Sheet Metal Fabricator Relationship Specialty Start Date End Date Albert Parks MD [address] [place] [address] PCP - General 10/28/23
--- OUTSIDE RECORDS SUMMARY | 2024-10-18 22:38 | XMS_ITS | Encounter Summary ---
Author Organization Healthcare Address [address] [place] [address] Care Team Providers Care Private Client Advisor Name Role Phone Albert Parks MD Primary Care Provider [phone] Encounter Details Date Type Department Care Team (Latest Contact Info) Description 09/03/2024 Travel Social History Tobacco Use Types Packs/Day Years Used Date Smoking Tobacco: Former Cigarettes 1 3 2 019 - 2021 Smokeless Tobacco: Former Chew Quit: 03/2022 Alcohol Use Standard Drinks/Week Comments Not Currently 0 (1 standard drink = 0.6 oz pur e alcohol) PHQ-2 Answer Date Recorded Patient Health Questionnaire-2 Score 0 09/03/2024 [place] Depression Scale Answer Date Recorded [place] Depression Scale Total 1 09/09/2023 The thought [...] [place] documented as of this encounter Plan of Treatment Upcoming Encounters Date Type Department Care Team (Late st Contact Info) Description 10/25/2024 1:30 PM EDT Procedure Visit Obstetrics & Gynecology [address] [place] [address] Nicho Palacios MD [address] [place] [address] documented as of this encounter [...] documented as of this encounter Care Teams Private Client Advisor Relationship Specialty Start Date End Date Albert Parks MD [address] [place] [address] PCP - General 10/28/23 documented as of this encounter
[2024-10-18 22:39] VITALS: BP 121/78; PULSE 81; RESP 16; TEMP 36.7; O2SAT 99; BMI 24.7
--- NOTE | 2024-10-18 23:01 | HMH.EDGENADL ---
Discharge Plan Disposition Patient Disposition: Home, Self-Care Prescriptions Prescriptions: New doxylamine-pyridoxine (vit B6) 10-10 mg tablet,delayed release (DR/EC) 1 tab PO HS PRN (Reason: nausea and vomiting) Qty: 30 1RF No Action hydroxyzine pamoate [Vistaril] 25 mg capsule 25 mg PO Q6H PRN (Reason: anxiety) Qty: 30 1RF amoxicillin 500 mg tablet 500 mg PO TID 10 Days Qty: 30 0RF trmdbufwmhsytzz-mlguvpmwy-FC [Bromfed DM] 2-30-10 mg/5 mL Syrup 5 ml PO Q6H PRN (Reason: Cough) Qty: 240 0RF methylprednisolone 4 mg Tablets,Dose Pack 4 mg PO DIRECTED 6 Days Qty: 21 0RF Rx Instructions: Take 1 pack as directed for 6 days ondansetron 4 mg tablet,disintegrating 4 mg PO Q6H PRN (Reason: nausea and vomiting) Qty: 7 0RF Referrals Follow up/Referrals: Provider,Referral, MD [Primary Care Provider, Medical] - See instructions Activity Restrictions/Add. Instructions Additional Instructions/Restrictions: Please take doxylamine and B6 at night as needed for nausea and vomiting. Please follow-up with your primary care provider and [facility]. Please return to the emergency department if you develop any new or worsening symptoms or become concerned for your health. Clinical Impressions Clinical Impression: Nausea, at early stage Instructions Patient Instructions: DI for Diarrhea and Traveler's Diarrhea -- Adult, DI for Diarrhea and Traveler's Diarrhea -- Child, DI for Nausea -- Adult, DI for Nausea -- Child Print Language Print Language: Colombian Discharge ED Provider: Edgardo Alvarado General Adult HPI General Chief complaint: Nausea/Vomiting/Diarrhea Stated complaint: nausea,cold chills,feels bad Time Seen by Provider: 10/18/24 23:01 Mode of Arrival: Ambulatory Source of Information: Patient Description of Symptoms (Recalled from ER Triage Doc. by RN): Pt presents with nausea and chills for past 2 days after returning from group trip to [place]. Pt states everyone on trip feels like this. Pt denies any SOB, fever, cough. Pt states she is 3-4 weeks . History of Present Illness HPI narrative: 29-year-old female without significant past medical history presents for nausea. She reports that she has been nauseous for the last several days. She denies any vomiting. She reports that she was recently on a trip to [place] and everybody he went on the trip was also feeling nauseous and vomiting. Reports that she is about 3 to 4 weeks . She called [facility] and they sent a prescription for Zofran which she has been taking but she still feels nauseous. She is still not vomiting. Patient denies any urinary symptoms. Related Data Previous Rx's ?Medication ?Instructions ?Recorded amoxicillin 500 mg tablet 500 mg PO TID 10 days #30 tabs 01/20/24 bwzwvycqfabzzji-pttbhnzuiywsatc-UR 5 ml PO Q6H PRN Cough #240 mL 01/20/24 2 mg-30 mg-10 mg/5 mL oral syrup (Bromfed DM) methylprednisolone 4 mg tablets in 4 mg PO DIRECTED 6 days #21 tabs 01/20/24 a dose pack hydroxyzine pamoate 25 mg capsule 25 mg PO Q6H PRN anxiety #30 caps 02/26/24 (Vistaril) ondansetron 4 mg disintegrating 4 mg PO Q6H PRN nausea and 04/20/24 tablet vomiting #7 tabs doxylamine 10 mg-pyridoxine (vit 1 tab PO HS PRN nausea and 10/18/24 B6) 10 mg tablet,delayed release vomiting #30 tabs Allergies Allergy/AdvReac Type Severity Reaction Status Date / Time peanut Allergy Verified 11/11/18 23:45 [facility] Disclaimer: The information contained in this section may have been updated after the patient was seen, as this information can be updated by other users. Medical History (Updated 10/18/24 @ 23:14 by Edgardo Alvarado MD) Depression Anxiety Surgical History (Updated 01/20/24 @ 18:41 by Shruti Cantu RN) History of hernia repair Social History (Updated 12/05/23 @ 19:51 by Albert Powers APRN) Smoking Status: Current every day smoker second hand exposure: No alcohol intake: never current occupational status: student Travel in the last 8 weeks?: None Have you lived/traveled outside US in past 30 days?: No Contact w/someone who lives/traveled outside US past 30 days?: No Exposure to someone with infectious disease in past 14 days?: No Do you have a fever (greater than 100.4 F or 38 C)?: No Have you tested positive for COVID-19?: No Exposed to someone with COVID-19 in past 14 days?: No Do you have a sore throat?: No Do you have a cough?: No Do you have any weakness?: No Do you have any diarrhea?: No Are you experiencing any unusual bleeding?: No Do you have any muscle aches/pain?: No Do you have any abdominal pain?: No Are you experiencing loss of taste or smell?: No Other Medical History Have you received the Flu Vaccine for this season: No Have you received the Pneumonia Vaccine: No ROS Obtained: Yes All systems reviewed & no additional complaints except as documented Physical Exam General General appearance: alert and in no apparent distress Head Head exam: atraumatic and normocephalic Eye Eye exam: Present normal appearance, PERRL and EOMI ENT ENT exam: Present normal oropharynx and normal external ear exam Neck Neck exam: Present normal inspection and full ROM Chest Chest inspection: Present normal inspection and symmetric chest wall rise; Absent tenderness Respiratory Respiratory exam: Present normal lung sounds bilaterally; Absent respiratory distress Cardiovascular Cardiovascular exam: Present regular rate and normal rhythm Abdominal Exam Abdominal exam: Present soft; Absent distention, tenderness or guarding Extremities Exam Extremities exam: Present normal inspection; Absent edema or joint swelling Back Exam Back exam: Present normal inspection; Absent tenderness Neurological Exam Neurological exam: Present alert and oriented X3; Absent motor sensory deficit Psychiatric Psychiatric exam: Present normal affect and normal mood Skin Skin exam: Present warm, dry and normal color Lymphatic Lymphatic Findings: no adenopathy Medical Decision Making Medical Records Medical records reviewed: Yes I reviewed the patient's medical records. Screening: Per USPSTF and CDC recommendations, given the prevalence of disease in our region, it is our hospital?s policy to screen for HIV and viral Hepatitis for all patients aged 18 and over and those with ongoing risk factors. Dennis Inquiry Pt receiving controlled substance: No Dennis was queried for this patient: No Vital Signs: 10/18/24 22:39 10/18/24 23:21 Temperature 98.1 F 98.1 F Temperature Source Oral Oral Pulse Rate 63 Pulse Rate [Right] 81 Respiratory Rate 16 16 Blood Pressure 109/72 L Blood Pressure [Right Arm] 121/78 Blood Pressure Mean [Right Arm] 92 Blood Pressure Source Automatic Cuff Blood Pressure Source [Right Arm] Automatic Cuff Blood Pressure Position Sitting 02 Sat by Pulse Oximetry 99 Oxygen Delivery Method Room Air Room Air Lab Data Lab results reviewed: Yes I reviewed the patient's lab results. Medical Decision Narrative: 29-year-old female at 3 to 4 weeks presents for nausea.. History was obtained via interactive discussion with patient. On arrival, patient is [afebrile, hemodynamically stable, satting appropriately, alert, oriented x4, GCS 15], moving all extremities spontaneously. Full physical exam performed and significant for no significant physical exam abnormalities Differential includes but is not limited to gastroenteritis, nausea vomiting of , dehydration. Patient well-appearing and not actively vomiting, just nauseous. A prescription for doxylamine and B6 was sent. Patient discharged in stable condition.. Blood work, IV fluids were considered but deemed unnecessary given patient is not dehydrated. Procedures Risk/Benefits of Procedure(s) Were Explained: Yes Critical Care Critical Care Time Critical Care Time: No
[2024-10-18 23:21] VITALS: BP 109/72; PULSE 63; RESP 16; TEMP 36.7; O2SAT 100
== END 2024-10-18 23:22 | disposition home or self-care (01) ==
PROVIDERS: Emergency Provider Emergency Medicine
DX: O26.891 Other specified pregnancy related conditions, first trimester (principal); R11.0 Nausea; Z3A.01 Less than 8 weeks gestation of pregnancy
CPT/HCPCS: 99283